=== PATIENT | female | born 2000 | race Caucasian/White ===

== ENCOUNTER 2022-02-16 13:12 | Outpatient (CLI) | payer OTHER | END 2022-02-16 13:13 | disposition home or self-care (01) | LOC: CSHLAB 13:12 | PROVIDERS: ATTEND Obstetrics & Gynecology | DX: Z20.822 Contact with and (suspected) exposure to COVID-19 (principal) | CPT/HCPCS: U0003; U0005 ==

== ENCOUNTER 2022-02-17 21:17 | Day surgery (SDC) | payer OTHER ==
[2022-02-17 21:56] VITALS: BMI 31.4
[2022-02-17] MEDS ORDERED: hydrALAZINE 20 MG/ML VIAL SLOW IVP PRN (23:05)
== END 2022-02-18 00:25 | disposition home or self-care (01) ==
LOC: CSHLD/OP 21:17
PROVIDERS: ATTEND Obstetrics & Gynecology
DX: O47.1 False labor at or after 37 completed weeks of gestation (principal); O99.283 Endocrine, nutritional and metabolic diseases complicating pregnancy, third trimester; E03.9 Hypothyroidism, unspecified; Z79.899 Other long term (current) drug therapy; Z88.2 Allergy status to sulfonamides; Z3A.39 39 weeks gestation of pregnancy
CPT/HCPCS: 99283

== ENCOUNTER 2022-02-19 18:00 | Inpatient (IN) | payer OTHER ==
[2022-02-19] MEDS ORDERED: Zolpidem Tartrate 5 MG TAB PO PRN (21:08)
[2022-02-19] MEDS ORDERED: Promethazine HCl 25 MG/ML VIAL IM PRN (21:08)
[2022-02-19] MEDS ORDERED: Lidocaine 1% (PF) 30 ML VIAL SC PRN (21:08)
[2022-02-19] MEDS ORDERED: Ibuprofen 800 MG TAB PO PRN (21:08)
[2022-02-19] MEDS ORDERED: Misoprostol 200 MCG TAB PR PRN (21:08)
[2022-02-19] MEDS ORDERED: Ondansetron PF 4 MG/2 ML Vial IVP PRN (21:08)
[2022-02-19] MEDS ORDERED: Methylergonovine 0.2 MG/ML VIAL IM PRN (21:08)
[2022-02-19] MEDS ORDERED: HYDROcodone/Acetaminophen 5/325 mg Tablet PO PRN (21:08)
[2022-02-19] MEDS ORDERED: Docusate 100 MG CAP PO PRN (21:08)
[2022-02-19] MEDS ORDERED: hydrALAZINE 20 MG/ML VIAL SLOW IVP PRN (21:08)
[2022-02-19] MEDS ORDERED: Diphenoxylate HCl/Atropine Tablet PO PRN ×2 (21:08)
[2022-02-19] MEDS ORDERED: Acetaminophen 500 MG TAB PO PRN (21:08)
[2022-02-19] MEDS ORDERED: Carboprost 250 MCG/ML AMP IM PRN (21:08)
[2022-02-19] MEDS ORDERED: Lactated Ringer's 1,000 ML IV SCH (21:15)
[2022-02-19] MEDS ORDERED: NS w/ Oxytocin 30 units 500 ML IV SCH ×2 (21:15)
[2022-02-20 01:57] VITALS: BMI 31.4
[2022-02-20 02:40] LABS: Mean Corpuscular HGB CONC 34.2 g/dL (32.0-36.0); Mean Corpuscular Hemoglobin 30.2 pg (27.0-33.0); Mean Corpuscular Volume 88.4 fl (81.6-98.3); Mean Platelet Volume 10.5 fl (7.4-10.4); Platelet Count 160 10x3/uL (150-450); RBC Distribution Width 13.1 % (11.5-14.5); Red Blood Cell (RBC) Count 3.97 10x6/uL (3.90-5.03); White Blood Cell (WBC) Count 10.9 10x3/uL (3.5-10.5)
[2022-02-20] MEDS ORDERED: Misoprostol 100 MCG TAB VAG SCH (03:00)
[2022-02-20] MEDS: Misoprostol 100 MCG TAB VAG SCH ×3 (03:12→15:57)
[2022-02-20 03:18] LABS: HBSAg Index 0.16 S/CO (0-0.99); Hep B Surf Ag Non-Reactive S/CO (NonReactive)
[2022-02-20 03:19] LABS: Syphilis Antibody Nonreactive (Nonreactive); Syphilis Antibody Index 0.02 S/CO (<1.00 Non-Reactive)
[2022-02-20] MEDS ORDERED: Misoprostol 100 MCG TAB PO SCH ×2 (05:00)
[2022-02-20] MEDS: Butorphanol Tartrate 1 MG/ML VIAL SLOW IVP PRN ×3 (05:01→21:18)
[2022-02-20] MEDS ORDERED: Bupivacaine/Epinephrine 0.25% 30 ML VIAL ONE (20:02)
[2022-02-20] MEDS ORDERED: Lidocaine 2% PF 5 ML VIAL ONE (20:02)
[2022-02-20] MEDS ORDERED: Bupivacaine PF 0.5% 30 ML VIAL ONE (20:02)
[2022-02-20] MEDS ORDERED: Bupivacaine HCl 0.5%/Epinephrine 1:200,000/PF 30 ml Vial ONE (20:02)
[2022-02-20] MEDS ORDERED: Fentanyl 2 mcg/Bup 0.1% Cadd 100 ML ONE (23:54)
[2022-02-21] MEDS ORDERED: Fentanyl 100 MCG/2 ML VIAL ONE ×2 (00:12→13:15)
[2022-02-21] MEDS ORDERED: Promethazine HCl 25 MG/ML VIAL IM PRN ×3 (01:06→15:43)
[2022-02-21] MEDS ORDERED: diphenhydrAMINE 50 MG/ML VIAL IVP PRN ×2 (01:06→12:57)
[2022-02-21] MEDS ORDERED: Acetaminophen 325 MG TAB PO PRN ×2 (01:06→15:43)
[2022-02-21] MEDS ORDERED: Lactated Ringer's 500 ML IV PRN (01:06)
[2022-02-21] MEDS ORDERED: Moisturizing Cream (Eucerin) 113 GM JAR TOP PRN (01:06)
[2022-02-21] MEDS ORDERED: ePHEDrine Sulfate 50 MG/10 ML VIAL SLOW IVP PRN (01:06)
[2022-02-21] MEDS ORDERED: Naloxone HCl 0.4 mg/ml Vial IVP PRN ×2 (01:06)
[2022-02-21] MEDS ORDERED: Ondansetron PF 4 MG/2 ML Vial IVP PRN ×3 (01:06→15:43)
[2022-02-21] MEDS ORDERED: Fentanyl 2 mcg/Bupivacaine 0.1% Cassette 100 ML EPIDURAL SCH (01:15)
[2022-02-21] MEDS ORDERED: Communication Order-Pharmacy FS SCH ×2 (01:15→13:00)
[2022-02-21] MEDS ORDERED: Fentanyl 2 mcg/Bup 0.1% Cadd 100 ML ONE (07:16)
[2022-02-21] MEDS ORDERED: Tranexamic Acid 1,000 MG/10 ML VIAL ONE (10:43)
[2022-02-21] MEDS ORDERED: Misoprostol 200 MCG TAB ONE (10:43)
[2022-02-21] MEDS ORDERED: Methylergonovine 0.2 MG/ML VIAL ONE (10:44)
[2022-02-21] MEDS ORDERED: Famotidine/PF 20 mg/2ml Vial ONE (12:02)
[2022-02-21] MEDS ORDERED: CEFAZOLIN 2 GM VIAL ONE (12:02)
[2022-02-21] MEDS ORDERED: Azithromycin 500 MG VIAL ONE (12:03)
[2022-02-21] MEDS ORDERED: PHENYLEPHRINE-NS 100 MCG/ML 10 ML SYRINGE ONE (12:24)
[2022-02-21] MEDS ORDERED: Morphine PF 10 MG/10 ML VIAL ONE (12:24)
[2022-02-21] MEDS ORDERED: Oxytocin 10 UNITS/ML VIAL ONE ×2 (12:25→12:57)
[2022-02-21] MEDS ORDERED: Lidocaine 2% PF 100 mg/5 ml Syringe ONE (12:26)
[2022-02-21] MEDS ORDERED: Ondansetron PF 4 MG/2 ML Vial ONE (12:32)
[2022-02-21] MEDS ORDERED: Metoclopramide HCl 10 MG/2 ML VIAL ONE (12:32)
[2022-02-21] MEDS ORDERED: Lidocaine 1% (PF) 30 ML VIAL ONE (12:32)
[2022-02-21] MEDS ORDERED: Dexamethasone 4 mg/ml Vial ONE (12:32)
[2022-02-21] MEDS ORDERED: PROPOFOL 20 ML ONE (12:36)
[2022-02-21] MEDS ORDERED: Ketorolac Tromethamine 30 MG/ML VIAL ONE (12:53)
[2022-02-21] MEDS ORDERED: Zolpidem Tartrate 5 MG TAB PO PRN (12:57)
[2022-02-21] MEDS ORDERED: diphenhydrAMINE 50 MG/ML VIAL IM PRN (12:57)
[2022-02-21] MEDS ORDERED: fentaNYL Citrate/PF 1,000 MCG in Sodium Chloride 0.9% 30 ML IV PRN (12:57)
[2022-02-21] MEDS ORDERED: diphenhydrAMINE 25 MG CAP PO PRN ×2 (12:57→15:43)
[2022-02-21] MEDS ORDERED: Naloxone HCl 0.4 mg/ml Vial IV PRN (12:57)
[2022-02-21] MEDS ORDERED: Methylergonovine 0.2 MG TAB PO PRN (15:43)
[2022-02-21] MEDS ORDERED: Milk Of Magnesia 30 ML UDCUP PO PRN (15:43)
[2022-02-21] MEDS ORDERED: Preparation H Ointment 28 GM TUBE PR PRN (15:43)
[2022-02-21] MEDS ORDERED: Benzocaine-Menthol 82.5 ML CAN TOP PRN (15:43)
[2022-02-21] MEDS ORDERED: NS w/ Oxytocin 30 units 500 ML IV SCH (15:43)
[2022-02-21] MEDS ORDERED: Measles/Mumps/Rubella 10 MCG/0.5 ML VIAL SC ONE (15:43)
[2022-02-21] MEDS ORDERED: Varicella virus, LIVE 0.5 ML VIAL SC ONE (15:43)
[2022-02-21] MEDS ORDERED: Misoprostol 200 MCG TAB VAG PRN (15:43)
[2022-02-21] MEDS ORDERED: Boostrix 0.5 ML (Tdap) VIAL (>/=7 yrs of age) IM ONE (15:43)
[2022-02-21] MEDS ORDERED: Lanolin Ointment 7 GM TUBE TOP PRN (15:43)
[2022-02-21] MEDS ORDERED: Bisacodyl 10 MG SUPP PR PRN (15:43)
[2022-02-21] MEDS ORDERED: hydrALAZINE 20 MG/ML VIAL SLOW IVP PRN (15:43)
[2022-02-21] MEDS: Misoprostol 100 MCG TAB VAG SCH ×2 (15:57→15:58)
[2022-02-21] MEDS: Ferrous Sulfate 325 MG TAB PO SCH (17:58)
[2022-02-21] MEDS: Ibuprofen 800 MG TAB PO SCH (22:38)
[2022-02-21] MEDS: Docusate 100 MG CAP PO SCH (22:38)
[2022-02-21] MEDS ORDERED: CEFAZOLIN 2 GM in Sodium Chloride 0.9% 100 ML IVPB SCH (22:45)
[2022-02-22 05:51] LABS: Hemoglobin 10.1 g/dL (12.0-15.5); Mean Corpuscular HGB CONC 34.1 g/dL (32.0-36.0); Mean Corpuscular Hemoglobin 30.7 pg (27.0-33.0); Mean Platelet Volume 10.7 fl (7.4-10.4); Platelet Count 135 10x3/uL (150-450); Red Blood Cell (RBC) Count 3.29 10x6/uL (3.90-5.03)
[2022-02-22] MEDS: Ibuprofen 800 MG TAB PO SCH ×3 (07:36→21:26)
[2022-02-22] MEDS: Prenatal Vitamin 1 TAB PO SCH (07:36)
[2022-02-22] MEDS: Docusate 100 MG CAP PO SCH ×2 (07:37→21:26)
[2022-02-22] MEDS ORDERED: CEFAZOLIN 2 GM in Sodium Chloride 0.9% 100 ML IVPB SCH (08:00)
[2022-02-22] MEDS: HYDROcodone/Acetaminophen 5/325 mg Tablet PO PRN ×3 (08:19→21:27)
[2022-02-22] MEDS: Ferrous Sulfate 325 MG TAB PO SCH (09:33)
[2022-02-22 23:43] VITALS: BP 120/57; TEMP 99
[2022-02-23] MEDS: Ibuprofen 800 MG TAB PO SCH ×2 (05:30→13:45)
[2022-02-23] MEDS: HYDROcodone/Acetaminophen 5/325 mg Tablet PO PRN ×2 (05:30→12:27)
[2022-02-23] MEDS: Ferrous Sulfate 325 MG TAB PO SCH ×2 (08:10→19:04)
[2022-02-23] MEDS: Prenatal Vitamin 1 TAB PO SCH (08:54)
[2022-02-23] MEDS: Docusate 100 MG CAP PO SCH (08:54)
== END 2022-02-23 19:35 | disposition home or self-care (01) | DRG 788 ==
LOC: CSHLD 02-20 01:26 → CSHPP 02-21 17:00
PROVIDERS: ADMIT Obstetrics & Gynecology; ATTEND Obstetrics & Gynecology
PROC: 10D00Z1 Extraction of Products of Conception, Low, Open Approach (ICD-10-PCS; principal; 2022-02-21)
DX: O62.1 Secondary uterine inertia (principal); Z88.2 Allergy status to sulfonamides; Z3A.39 39 weeks gestation of pregnancy; Z37.0 Single live birth
CPT/HCPCS: 36415; 51702; 85027; 86780; 86850; 86900; 86901; 87340; 99285; J0456; J0595; J0690; J1100; J1885; J2001; J2274; J2405; J2590; J2704; J2765; J3010; J3490; S0020; S0028